=== PATIENT | male | born 1970 | race Caucasian/White ===

== ENCOUNTER 2017-05-30 11:44 | Emergency (ER) | payer BC, OTHER ==
[~2017-05-30] VITALS: Ht 182.9 cm; Wt 100.0 kg
[~2017-05-30 11:44] MED LIST: CYCL-319 PO; HYDR-906 PO; IBUP-1542 PO
[2017-05-30 11:48] VITALS: Ht 182.9 cm; Wt 100.0 kg
--- NOTE | 2017-05-30 12:30 | ERD ---
ER Documentation Chief Complaint Chief Complaint Hematuria HPI The patient is a 47-year-old male who presents the emergency department with complaint of hematuria that began this morning. The patient reports that shortly after waking up this morning he went to use the restroom and noted onset of urine mixed with blood. Towards the end of his urinary stream he noted mostly blood. The patient then went to have breakfast, and shortly afterwards went to use the restroom again, only to note persistent hematuria. He r eyes any associated dysuria, urinary frequency, urgency, hesitancy, flank pain. Denies any fevers, sweats, chills, nausea, vomiting, diarrhea, black or bloody stools, chest pain, palpitations or shortness of breath. Denies any abdominal pain. Denies excessive aspirin or NSAID use. Denies anticoagulant use. Denies any liver dysfunction. Denies excessive alcohol use. Denies history of similar symptoms in the past. ROS All systems reviewed and are negative except as per history of present illness. Medications Home Meds Active Scripts Cyclobenzaprine Hcl* (Cyclobenzaprine Hcl*) 10 Mg Tablet, 10 MG PO TID, #15 TAB Prov:JJ MCKINLEY NP 02/22/16 Ibuprofen* (Motrin*) 600 Mg Tab, 600 MG PO Q6H Y for PAIN AND OR ELEVATED TEMP, #30 TAB Prov:JJ MCKINLEY OPTOMECHANICAL TECHNICIAN 02/22/16 Hydrocodone/Acetaminophen ([place] 5-325 Tablet) 1 Each Tablet, 1 TAB PO Q6H Y for PAIN, #20 TAB Prov:JJ MCKINLEY NP 02/22/16 Reported Medications [none] No Conflict Check 02/22/16 Allergies Allergies: Coded Allergies: No Known Allergy (Unverified , 02/22/16) PMhx/Soc History of Surgery: Yes (ankle surgery) Hx Miscellaneous Medical Probl: Yes (gout) Hx Alcohol Use: No Hx Substance Use: No Hx Tobacco Use: No Physical Exam Vitals Vital Signs Date Time Temp Pulse Resp B/P Pulse Ox O2 Delivery O2 Flow Rate FiO2 05/30/17 11:48 98.1 99 18 136/88 99 Physical Exam GENERAL: Well-developed, well-nourished, male, in no acute distress. HEENT: Head is normocephalic, atraumatic. No scleral pallor or icterus. Extraocular movements intact. Conjunctiva pink. Moist mucous membranes. NECK: Supple. Full range of motion. RESPIRATORY: Lungs are clear to auscultation bilaterally. Equal breath sounds. Normal expiratory effort. CARDIOVASCULAR: Regular rate and rhythm. Normal peripheral perfusion. GASTROINTESTINAL: Abdomen is soft, non-tender, and non-distended. No guarding, no rebound tenderness. Normal bowel sounds. No gross peritonitis. FLANK: No CVA tenderness. BACK: No midline tenderness. EXTREMITIES: No clubbing, cyanosis, or edema. Normal skin perfusion. Moving all extremities. Muscle tone is normal. No focal swelling or erythema. NEUROLOGIC: The patient is alert, awake, and oriented x 3. No focal neurologic deficits. INTEGUMENT: Skin is intact. Warm and dry. PSYCHIATRIC: Cooperative. Appropriate. Result Diagram: 05/30/17 1237 05/30/17 1237 Results 24 hrs Laboratory Tests Test 05/30/17 12:37 White Blood Count 7.910^3/ul Red Blood Count 5.0410^6/ul Hemoglobin 16.2g/dl Hematocrit 47.1% Mean Corpuscular Volume 93.5fl Mean Corpuscular Hemoglobin 32.1pg Mean Corpuscular Hemoglobin Concent 34.4g/dl Red Cell Distribution Width 11.8% Platelet Count 75807^3/UL Mean Platelet Volume 10.5fl Neutrophils % 64.9% Lymphocytes % 24.8% Monocytes % 8.1% Eosinophils % 1.3% Basophils % 0.8% Nucleated Red Blood Cells % 0.0/100WBC Neutrophils # 5.110^3/ul Lymphocytes # 2.010^3/ul Monocytes # 0.610^3/ul Eosinophils # 0.110^3/ul Basophils # 0.110^3/ul Nucleated Red Blood Cells # 0.010^3/ul Prothrombin Time 13.7Sec Prothrombin Time Ratio 1.1 INR International Normalized Ratio 1.04 Activated Partial Thromboplast Time 33.8Sec Urine Color RED Urine Clarity CLOUDY Urine pH 5.0 Urine Specific [place] 1.017 Urine Ketones NEGATIVEmg/dL Urine Nitrite NEGATIVEmg/dL Urine Bilirubin NEGATIVEmg/dL Urine Urobilinogen NEGATIVEmg/dL Urine Leukocyte Esterase NEGATIVELeu/ul Urine Microscopic RBC > 182/HPF Urine Microscopic WBC 0/HPF Urine Bacteria FEW/HPF Urine Hemoglobin 2+mg/dL Urine Glucose 1+mg/dL Urine Total Protein 2+mg/dl Sodium Level 141mmol/L Potassium Level 4.1mmol/L Chloride Level 104mmol/L Carbon Dioxide Level 25mmol/L Anion Gap 16 Blood Urea Nitrogen 10mg/dl Creatinine 1.02mg/dl Glucose Level 157mg/dl Calcium Level 9.6mg/dl Total Bilirubin 0.4mg/dl Direct Bilirubin 0.00mg/dl Indirect Bilirubin 0.4mg/dl Aspartate Amino Transf (AST/SGOT) 39IU/L Alanine Aminotransferase (ALT/SGPT) 66IU/L Alkaline Phosphatase 73IU/L Total Protein 8.3g/dl Albumin 4.3g/dl Globulin 4.00g/dl Albumin/Globulin Ratio 1.07 Prostate Specific Antigen 0.8ng/ml Procedures/MDM This is a 47-year-old male presenting to the Emergency Department with complaint of hematuria since this morning. The patient had no significant abnormalities noted on physical examination, and vital signs were stable. The differential diagnosis includes, but is not limited to, cystitis, urinary calculi, renal cell carcinoma, benign prostatic hyperplasia, neoplastic disease , transient unexplained hematuria, acute glomerulonephritis., polycystic kidney disease, anticoagulant use, renal infarction, paroxysmal nocturnal hemoglobinuria, hemolysis. No significant laboratory abnormalities were noted. No significantly increased reticulocyte count. Normal platelet count. Hemoglobin and hematocrit are normal, no severe anemia. BUN and creatinine are normal, no prerenal azotemia or acute kidney injury. Urinalysis performed revealed presence of large blood, consistent with patient's account of hematuria , but no nitrites or urine leukocyte esterase to suggest urinary tract infection. Patient has no had any fevers, chills, symptomatic symptoms or flank/ CVA tenderness, and therefore I doubt pyelonephritis. Presentation not consistent with that of post-streptococcal glomerulonephritis, nephropathy or paroxysmal nocturnal hemoglobinuria. PSA was performed (for baseline) and within normal reference range. After rest, the patient reports no new complaints , and remains stable with no signs of acute distress. Patient with no pain/ discomfort, no indication for advanced imaging at this time. The patient is in stable condition and therefore can be discharged home with a copy of all results and given strict return precautions for signs of deteriorating or worsening condition. The patient is advised to follow up with his primary care provider and/or urologist within 1-2 days for re-evaluation and further management, or return to the ER sooner for any new or worsening symptoms. I shared my medical decision making and plan with the patient at length and in great detail, and the patient verbally understands and agrees with the plan for further observation and care as an outpatient. At the time of discharge, all questions were answered. Departure Diagnosis: Primary Impression: Hematuria Hematuria type: unspecified type Qualified Code: R31.9 - Hematuria, unspecified type Condition: Stable Patient Instructions: Hematuria Referrals: KELLY CALLAHAN MD, RICHARD MD Additional Instructions: Call your primary care doctor TOMORROW for an appointment during the next 1-2 days.See the doctor sooner or return here if your condition worsens before your appointment time. BEATRICE MCDOWELL PA-C May 30, 2017 12:30
[2017-05-30 12:59] LABS: BASOPHIL # 0.1 10^3/ul (0.0-0.1); BASOPHILS % 0.8 % (0.0-2.0); EOSINOPHILS # 0.1 10^3/ul (0.0-0.5); EOSINOPHILS % 1.3 % (0.0-7.0); HEMATOCRIT 47.1 % (42.0-52.0); HEMOGLOBIN 16.2 g/dl (14.0-18.0); LYMPHOCYTES % 24.8 % (15.0-51.0); MEAN CORPUSCULAR HEMOGLOBIN 32.1 pg (29.0-33.0); MEAN CORPUSCULAR HGB CONC 34.4 g/dl (32.0-37.0); MEAN CORPUSCULAR VOLUME 93.5 fl (82.0-101.0); MEAN PLATELET VOLUME 10.5 fl (7.4-10.4); MONOCYTE # 0.6 10^3/ul (0.3-0.9); MONOCYTES % 8.1 % (0.0-11.0); NEUTROPHIL # 5.1 10^3/ul (1.6-7.5); NEUTROPHILS % 64.9 % (39.0-77.0); PLATELET COUNT 222 10^3/UL (140-415); RED BLOOD COUNT 5.04 10^6/ul (4.70-6.10); RED CELL DISTRIBUTION WIDTH 11.8 % (11.5-14.5); WHITE BLOOD COUNT 7.9 10^3/ul (4.8-10.8)
[2017-05-30 13:07] LABS: ADD UMIC YES; UR ASCORBIC ACID NEGATIVE (NEGATIVE); UR BACTERIA FEW /HPF (NONE SEEN); UR BILIRUBIN (Dip) NEGATIVE (NEGATIVE); UR BLOOD (Dip) 2+ mg/dL (NEGATIVE); UR CLARITY CLOUDY (CLEAR); UR COLOR RED (YELLOW); UR GLUCOSE (Dip) 1+ mg/dL (NEGATIVE); UR KETONES (Dip) NEGATIVE (NEGATIVE); UR LEUKOCYTE ESTERASE (Dip) NEGATIVE Leu/ul (NEGATIVE); UR NITRITE (Dip) NEGATIVE (NEGATIVE); UR RBC > 182 /HPF (0-5); UR SPECIFIC GRAVITY (Dip) 1.017 (1.003-1.030); UR TOTAL PROTEIN (Dip) 2+ mg/dl (NEGATIVE); UR UROBILINOGEN (Dip) NEGATIVE (NEGATIVE)
[2017-05-30 13:21] LABS: INR 1.04; PROTIME 13.7 Sec (11.9-14.9); PT RATIO 1.1
[2017-05-30 13:22] LABS: PARTIAL THROMBOPLASTIN TIME 33.8 Sec (25.0-35.0)
[2017-05-30 13:27] LABS: ALBUMIN 4.3 g/dl (3.3-4.9); ALBUMIN/GLOBULIN RATIO 1.07; BILIRUBIN,INDIRECT 0.4 mg/dl (0-1.1); BILIRUBIN,TOTAL 0.4 mg/dl (0.2-1.3); CALCIUM 9.6 mg/dl (8.4-10.2); CREATININE 1.02 mg/dl (0.61-1.24); POTASSIUM 4.1 mmol/L (3.5-5.1); TOTAL PROTEIN 8.3 g/dl (6.1-8.1)
== END 2017-05-30 14:37 | disposition home or self-care (01) ==
LOC: FTE 11:44
DX: R31.9 Hematuria, unspecified (principal)
CPT/HCPCS: 36415; 80053; 81001; 84153; 84154; 85025; 85610; 85730; 87086; 87591; 99283

== ENCOUNTER 2017-08-06 09:06 | Emergency (ER) | END 2017-08-06 14:32 | disposition home or self-care (01) ==